=== PATIENT | female | born 1985 | race American Indian/Alaskan Native ===

== ENCOUNTER 2020-08-08 08:01 | Day surgery (SDC) | payer OTHER ==
--- NOTE | 2020-08-07 13:38 | History and Physical Report ---
History of Present Illness Date of examination: 08/07/20 Date of admission: 08/07/2020 Chief complaint: missed History of present illness: Visit Type: Pre-Op CC: pre op. History of Present Illness: pt presents for pre op visit: D&C....................... ..............................................Karen Ha August 07, 2020 10:19 AM Mask, Patient denies fever, cough, shortness of breath and exposure to COVID-19. Pt presents for pre op for D&C due to missed abotion not responsive to medical threapy. States LMP was 07/23/20 that lasted 5 days like her regular periods. Today she has no c/o vaginal bleeding, abdominal pain/cramping. States that she had an SAB in June and she is not sure if this is the same or a different . Ultrasound 07/30/20 showed a possible GS with RPOC in lower uterine segment. Discussed findings with patient and options. Pt states that she had medication X3 in June and it did not work and she would like to have D&C. All risk/benefits/alternatives were d/w pt and questions were addressed and answered. Consents signed and placed on chart and copy given to pt. 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 Hospitalizations: negative Anesthesia Complications: negative Abnormal PAP: negative Uterine Anomaly: negative RICHARD Exposure: negative Infertility: negative Infection History HIV Risk Eval: no TB exposure: no Personal hx. of genital herpes: no Partner hx. of genital herpes: no Hx of STD: Positive 2009 Active Medications (reviewed today): None Current Allergies (reviewed today): * TOMATOES (Critical) Past Medical History: Reviewed history from 11/15/2019 and no changes required: Headaches(Migraines) PCOS Past Surgical History: Reviewed history from 06/12/2020 and no changes required: positive X 2. 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 Risk Factors: PAP Smear History: Date of Last PAP Smear: 06/14/2020 Review of Systems See HPI Laboratory Results Physical Exam Appearance: well developed, well nourished, no acute distress Other Exams Lungs: no rales, rhonchi, or wheezes Heart: S1, S2, no murmur, rub, or gallop Abdomen: soft, non-tender, no masses, bowel sounds normal Extremities: normal alignment, no joint enlargement, crepitus, masses or tenderness; normal tone and strength Genitourinary Exam Comments: deferred for EUA [Problems-CCC] Impression & Recommendations: Problem # 1: Irregular Menses (IHB20-P31.6) Problem # 2: , missed (ICD-632) (RIW02-O04.1) -failed medical thereapy -desires surgical therapy. All risk/benefits/alternatives were d/w pt and questions were addressed and answered. Consent signed and placed on the chart. 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 Negative: distention, tenderness, guarding Genitourinary (Female): Positive: other (deferred until EUA) Results All other labs normal. Assessment and Plan - Patient Problems (1) Missed Status: Acute Plan to address problem: -admit and prepare for above stated procedure -consent signed and placed on the chart.
[~2020-08-08 08:01] MED LIST: LIDOCAINE PF 100 MG/5 ML (CARDIAC SYRINGE) IV ONE; METHYLERGONOVINE MALEATE 0.2 MG/ML VIAL IM ONE; SILVER NITRATE APPLICATOR 1 EA TP ONE; ceFAZolin/Water 2 GM/20 ML 2 GM/20 ML SYRINGE IV NR; fentaNYL 100 MCG/2 ML INJ ONE; propofoL 200 MG/20 ML VIAL IV ONE
--- NOTE | 2020-08-08 08:28 | Anesthesia Day of Surgery ---
Anesthesia Day of Surgery - Day of Surgery Patient Examined: Yes Patient H&P Reviewed: Yes Patient is NPO: Yes
[2020-08-08] MEDS ORDERED: HYDROmorphone 1 MG/1 ML INJ IV PRN ×2 (08:29)
[2020-08-08] MEDS ORDERED: ONDANSETRON 4 MG/2 ML INJ IV PRN (08:29)
--- NOTE | 2020-08-08 08:29 | Anesthesia Consultation ---
Anesthesia Consult and Med Hx Date of service: 08/08/20 - Airway Anesthetic Teeth Evaluation: Good ROM Head & Neck: Adequate Mental/Hyoid Distance: Adequate Mallampati Class: Class III Intubation Access Assessment: Probably Good - Pre-Operative Health Status ASA Pre-Surgery Classification: ASA2 Proposed Anesthetic Plan: General - Pulmonary Hx Smoking: Yes - Central Nervous System Hx Neuromuscular Disorder: Yes (Migraines) Hx Psychiatric Problems: No - Hematic Hx Anemia: Yes ("Borderline" as a child) Hx Sickle Cell Disease: No - Other Systems Hx Alcohol Use: Yes Hx Substance Use: Yes (Marijuana daily) Hx Cancer: No
[2020-08-08] MEDS ORDERED: LACTATED RINGERS 1,000 ML IV SCH (08:30)
[2020-08-08] MEDS ORDERED: MIDAZOLAM 2 MG/2 ML INJ ONE (08:41)
[2020-08-08 08:55] LABS: Hematocrit 36.8 % (30.3-42.9); Hemoglobin 12.1 gm/dl (10.1-14.3); Mean Corpuscular HGB Conc 33 % (30-34); Mean Corpuscular Volume 88 fl (79-97); Platelet Count 170 K/mm3 (140-440); Red Blood Count 4.17 M/mm3 (3.65-5.03); Red Cell Distribution Width 13.6 % (13.2-15.2)
[2020-08-08] MEDS ORDERED: MIDAZOLAM 2 MG/2 ML INJ IV NR (09:00)
[2020-08-08] MEDS ORDERED: dexAMETHasone 20 MG/5 ML VIAL ONE (09:06)
[2020-08-08] MEDS ORDERED: ONDANSETRON 4 MG/2 ML INJ ONE (09:07)
--- NOTE | 2020-08-08 09:14 | Operative Report ---
Operative Report Operative Report: Date of procedure:08/08/2020 Pre-operative diagnosis: missed Post-operative diagnosis:same Procedure name(s): EUA Suction D&C Surgeon: Dr. 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 She desired surgical intervention. All risk, benefits and alternatives were d/w pt and all questions were addressed and answered. Procedure: Patient was taken to the operating room where she was placed under [mask anesthesia]. She was then prepped and draped in sterile fashion. She was placed in dorsal lithotomy position with legs in Geen stirrups. Urine output was obtained via straight catheterization. The anterior lip of the cervix was grasped with a tenaculum and the uterus was sounded to approximately 10cm. As at this point that the cervix was dilated to allow the passage of a [8 ]mm suction curette. Suction dilatation and curettage occurred until a gritty texture was obtained on all surfaces of the uterus. Products of conception were removed from the uterus. Patient was given methergine at the end of the procedure. Hemostasis was noted to be excellent. Silver nitrate was applied to ant cervix where tenaculum had been placed with excellent hemostasis noted. Patient was taken to the recovery room awake and in stable condition. Patient was given Ancef prior to the onset of the procedure. All laps and needle counts were correct. Patient tolerated the procedure well.
--- NOTE | 2020-08-08 09:15 | Short Stay Summary ---
Short Stay Documentation Date of service: 08/08/20 - History Principal diagnosis: missed H&P: dictated Social history: other (see hpi) - Allergies and Medications Current Medications: Allergies tomato Allergy (Verified 08/03/20 17:06) Anaphylaxis Home Medications Medication Instructions Recorded Confirmed Last Taken Type No Known Home Medications [No 08/03/20 08/03/20 Unknown History Reported Home Medications] Active Medications Hydromorphone HCl (Hydromorphone 1 Mg/1 Ml Inj) 0.25 mg IV Q10MIN PRN PRN Reason: Pain, Moderate (4-6) Stop: 08/08/20 23:00 Hydromorphone HCl (Hydromorphone 1 Mg/1 Ml Inj) 0.5 mg IV Q10MIN PRN PRN Reason: Pain , Severe (7-10) Stop: 08/08/20 23:00 Cefazolin Sodium (Ancef/Sterile Water 2 Gm/20 Ml) 2 gm in 20 mls @ 80 mls/hr IV PREOP NR Stop: 08/08/20 20:00 Lactated Ringer's (Lactated Ringers) 1,000 mls @ 125 mls/hr IV DIRECT DANNY Midazolam HCl (Midazolam 2 Mg/2 Ml Inj) 2 mg IV PREOP NR Stop: 08/08/20 23:59 Ondansetron HCl (Ondansetron 4 Mg/2 Ml Inj) 4 mg IV ONCE PRN PRN Reason: Nausea And Vomiting Stop: 08/08/20 23:00 - Brief post op/procedure progress note Date of procedure: 08/08/20 Pre-op diagnosis: missed Post-op diagnosis: same Procedure: Suction D&C EUA Anesthesia: other (LMA) Findings: see op report Surgeon: IZA SUÁREZ Estimated blood loss: minimal Pathology: list (uterine contents) Specimen disposition: to lab Condition: stable - Hospital course Hospital course: pt admitted for above stated procedure. Pt will have recovery in PACU and be d/c home once d/c criteria has been met. - Disposition Condition at discharge: Good Disposition: DC-01 TO HOME OR SELFCARE - Discharge Diagnoses (1) Missed Status: Acute Short Stay Discharge Plan Activity: no restrictions Weight Bearing Status: Weight Bear as Tolerated Diet: regular Additional Instructions: DO NOT TAKE BATHS FOR 2 WEEK, MAY SHOWER VAGINAL REST UNTIL DOCTOR ORDERS(NOTHING IN VAGINA-NO TAMPONS, NO DOUCHE, NO SEX ) DO NOT DRIVE, OPERATE MACHINERY, OR SIGN LEGAL PAPERS FOR 24 HOURS. MAY RESUME REGULAR DIET (AVOID GREASY AND SPICY FOODS TODAY) Follow up with: [facility] [Primary Care Provider] - 7 Days Forms: Outpatient Surgery DC Inst. Prescriptions: Ibuprofen [Motrin 800 MG tab] 800 mg PO Q8HR PRN #30 tablet PRN Reason: Pain, Moderate (4-6)
[2020-08-08] MEDS ORDERED: diphenhydrAMINE 50 MG/ML VIAL ONE (10:12)
[2020-08-08] MEDS ORDERED: diphenhydrAMINE 50 MG/ML VIAL IV NR (10:13)
[2020-08-08 10:49] VITALS: BP 136/77
--- NOTE | 2020-08-08 16:33 | Post Anesthesia Evaluation ---
- Post Anesthesia Evaluation Patient Participated: Yes Airway Patent: Yes Stable Respiratory Function: Yes Nausea/Vomiting: No Temp > 96.8F: Yes Pain Manageable: Yes Adequeate Hydration: Yes Anesthesia Complications: No Block Receding Appropriately: Not Applicable Patient on Ventilator: No
== END 2020-08-08 10:45 | disposition home or self-care (01) ==
LOC: OR 08:01
PROVIDERS: ATTEND Obstetrics & Gynecology
DX: O02.1 Missed abortion (principal); F17.210 Nicotine dependence, cigarettes, uncomplicated; G43.909 Migraine, unspecified, not intractable, without status migrainosus; K21.9 Gastro-esophageal reflux disease without esophagitis; Z3A.10 10 weeks gestation of pregnancy; Z88.8 Allergy status to other drugs, medicaments and biological substances; Z79.899 Other long term (current) drug therapy; Z98.891 History of uterine scar from previous surgery; Z72.89 Other problems related to lifestyle; Z98.890 Other specified postprocedural states; Z86.2 Personal history of diseases of the blood and blood-forming organs and certain disorders involving the immune mechanism
CPT/HCPCS: 36415; 59820; 85027; 86850; 86900; 86901; 88305; J1100; J1200; J2001; J2210; J2250; J2405; J2704; J3010; J7120

== ENCOUNTER 2021-11-20 05:26 | Inpatient (IN) | payer OTHER ==
--- NOTE | 2021-11-13 12:28 | History and Physical Report ---
History of Present Illness Date of examination: 11/13/21 History of present illness: OB Visit Record - 38 weeks ( P: 2) EDC: 11/27/2021 Weight today: 173 lbs. - Change since last visit: -2 Pre-preg wt: 138 lbs. - Change for : +35 BP: 102/60 Temp: 98.2 Urine Tests Protein: negative Glucose: negative Nitrite: negative Leukocytes: negative Chief Complaint / Current Status: No c/o 38w 0d pre op ....................................................................Julianne Webster November 13, 2021 10:33 AM Patient denies fever, cough, shortness of breath and exposure to COVID-19. Pt presents for preop for c/s with Dr. Carvalho. All risk/benefits/alternatives were d/w pt and questions were addressed and answered. She desires removal of tubes at time of c/s for contraception. I d/w risk including but not limted to bleeding, infection, injury to bladder, bowel, uterus, tubes ovaries, need for transfusion, need for addtional hospital stay, injury to the baby and hysterectomy as a life saving measure. She expressed understanding. Consents singed and placed on the chart. EDC Calculations LMP: 11/27/2021 EDC Confirmation: 11/27/2021 Gestational Age: 38 0/7 weeks Past History : 5 Term Births: 2 Premature Births: 0 Living Children: 2 Para: 2 Mult. Births: 0 Prev : 2 Prev. attempt? 0 Aborta: 2 Elect. Ab: 0 Spont. Ab: 2 Ectopics: 0 # 1 Delivery date: 04/2010 Weeks Gestation: 6-7 wks Delivery type: SAB Comments: No complications # 2 Delivery date: 02/2011 Weeks Gestation: 39 wks labor: no Delivery type: Hours of labor: 12 hours Anesthesia type: spinal Delivery location: [place], [place] Sex: Female weight: 7-0 Comments: Elected , prolonged labor? # 3 Delivery date: 10/05/2017 Weeks Gestation: 39 wks labor: no Delivery type: Anesthesia type: spinal Delivery location: [facility] Sex: Female weight: 6-15 Comments: No complications # 4 Delivery date: 10/2020 Weeks Gestation: 6-7 Delivery type: SAB Comments: D&C Past Medical History: Reviewed history from 11/15/2019 and no changes required: Headaches(Migraines) PCOS Past Surgical History: Reviewed and updated today: positive X 2. 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 of genital herpes: no Rash, Viral, or Febrile illness since last LMP? no Varicella/Chicken Pox Status: Unknown TB Risk: no Genetic History ADVANCED MATERNAL AGE Congenital Heart Defect: Mom: no Dad: no Nathanael Disease: Mom: no Dad: no Thalassemia Mom: no Dad: no Neural Tube Defect Mom: no Dad: no Down's Syndrome Mom: no Dad: no Agusto-Sachs Mom: no Dad: no Sickle Cell Disease/Trait Mom: no Dad: no Hemophilia Mom: no Dad: no Muscular Dystrophy Mom: no Dad: no Cystic Fibrosis Mom: no Dad: no Divide Chorea Mom: no Dad: no Mental Retardation Mom: no Dad: no Fragile X Mom: no Dad: no Other Genetic/Chromosomal Disorder Mom: no Dad: no Child w/other defect Mom: no Dad: no Enviromental Exposures Enviromental Exposures Reviewed Xray Exposure: no Medication, drug, or alcohol use since LMP: no Chemical/Other Exposure: no Exposure to Cat Liter: no Hx of Parvovirus (Fifth Disease): no Occupational Exposure to Children: 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 Medications (reviewed today): None Current Allergies (reviewed today): * TOMATOES (Critical) Past History Past Medical History: other (see hpi) Past Surgical History: other (see hpi) 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) Family/Genetic History: other (see hpi) Social history: other (see hpi) - Obstetrical History Expected Date of Delivery: 11/27/21 Actual Gestation: 38 Week(s) 0 Day(s) : 4 Para: 2 Hx # Term Pregnancies: 2 Spontaneous Abortions: 1 Number of Living Children: 2 Medications and Allergies Allergies Allergy/AdvReac Type Severity Reaction Status Date / Time tomato Allergy Anaphylaxis Verified 08/03/20 17:06 Home Medications Medication Instructions Recorded Confirmed Last Taken Type Ibuprofen [Motrin 800 MG tab] 800 mg PO Q8HR PRN #30 tablet 08/08/20 Unknown Rx Review of Systems All systems: negative - Physical Exam Cardiovascular: Normal S1, Normal S2 Lungs: Positive: Clear to auscultation, Normal air movement Abdomen: Positive: normal appearance, soft, normal bowel sounds. Negative: distention, tenderness, guarding Genitourinary (Female): Positive: other (deferred) - Obstetrical FHR: auscultation normal Results All other labs normal. Assessment and Plan - Patient Problems (1) Previous delivery affecting Status: Acute Plan to address problem: -admit and prepare for c/s with B/L salpingectomy and any other indicated procedures -consents signed and placed on the chart. (2) Sterilization Status: Acute Plan to address problem: -all risk, benefits and alternatives were d/w pt and questions were addressed and answered -consent signed and placed on the chart.
[2021-11-14 11:03] LABS: Hematocrit 36.9 % (30.3-42.9); Hemoglobin 12.1 gm/dl (10.1-14.3); Mean Corpuscular HGB Conc 33 % (30-34); Mean Corpuscular Volume 88 fl (79-97); Platelet Count 129 K/mm3 (140-440); Red Cell Distribution Width 14.2 % (13.2-15.2)
[~2021-11-20 05:26] MED LIST changes: +BICITRA ORAL LIQD 30ML PO NR; +FAMOTIDINE 20 MG/2 ML INJ IV NR; +LACTATED RINGERS 1,000 ML IV SCH; -LIDOCAINE PF 100 MG/5 ML (CARDIAC SYRINGE) IV ONE; -METHYLERGONOVINE MALEATE 0.2 MG/ML VIAL IM ONE; +METOCLOPRAMIDE 10 MG/2 ML INJ IV NR; +OXYTOCIN DRIP 30 UNITS/500 ML BAG IV SCH; -SILVER NITRATE APPLICATOR 1 EA TP ONE; -fentaNYL 100 MCG/2 ML INJ ONE; -propofoL 200 MG/20 ML VIAL IV ONE
[2021-11-20] MEDS ORDERED: FAMOTIDINE 20 MG/2 ML INJ IV ONE (07:00)
[2021-11-20] MEDS: LACTATED RINGERS 1,000 ML IV SCH ×2 (07:00→11:13)
[2021-11-20] MEDS ORDERED: METOCLOPRAMIDE 10 MG/2 ML INJ IV ONE (07:00)
[2021-11-20] MEDS ORDERED: BICITRA ORAL LIQD 30ML PO ONE (07:00)
[2021-11-20] MEDS ORDERED: ceFAZolin/Water 2 GM/20 ML 2 GM/20 ML SYRINGE IV NR (07:00)
[2021-11-20] MEDS ORDERED: ONDANSETRON 4 MG/2 ML INJ ONE (07:05)
[2021-11-20] MEDS ORDERED: PHENYLEPHRINE/NS 1,000 MCG/10 ML SYRINGE (OR USE) IV ONE (07:06)
[2021-11-20] MEDS ORDERED: ePHEDrine SULFATE 50 MG/1 ML INJ ONE (07:06)
[2021-11-20] MEDS ORDERED: BUPIVACAINE/PF (0.5%) 5 MG/1 ML 30 ML VIAL INFILTRATI ONE (07:06)
[2021-11-20] MEDS ORDERED: LACTATED RINGERS 1,000 ML ONE (07:35)
[2021-11-20] MEDS ORDERED: SODIUM CHLORIDE 0.9% IRR 1,500 ML BOTTLE IR ONE (07:55)
[2021-11-20] MEDS ORDERED: WATER FOR IRRIG STERILE 1,500 ML BOTTLE IR ONE (07:55)
[2021-11-20] MEDS ORDERED: OXYTOCIN DRIP 30 UNITS/500 ML BAG IV SCH ×2 (08:00→13:00)
[2021-11-20] MEDS ORDERED: NALOXONE 0.4 MG/1 ML INJ IV PRN ×2 (08:49→13:00)
[2021-11-20] MEDS ORDERED: MORPHINE 4 MG/1 ML INJ IV PRN (08:49)
[2021-11-20] MEDS ORDERED: HYDROmorphone 1 MG/1 ML INJ IV PRN ×2 (08:49→10:00)
--- NOTE | 2021-11-20 08:50 | Anesthesia Consultation ---
Anesthesia Consult and Med Hx Date of service: 11/20/21 - Airway Anesthetic Teeth Evaluation: Good ROM Head & Neck: Adequate Mental/Hyoid Distance: Adequate Mallampati Class: Class II Intubation Access Assessment: Probably Good - Pulmonary Exam CTA: Yes - Cardiac Exam Cardiac Exam: RRR - Pre-Operative Health Status ASA Pre-Surgery Classification: ASA2 Proposed Anesthetic Plan: Spinal Nerve Block: Kiran Tap - Pulmonary Hx Smoking: Yes (FORMER CIGAR SMOKER. STOPPED 2-3 YRS AGO.) Hx Asthma: No Hx Respiratory Symptoms: No SOB: No COPD: No Home Oxygen Therapy: No Hx Pneumonia: No Hx Sleep Apnea: No - Cardiovascular System Hx Hypertension: No Hx Coronary Artery Disease: No Hx Heart Attack/AMI: No Hx Angina: No Hx Percutaneous Transluminal Coronary Angioplasty (PTCA): No Hx Cardia Arrhythmia: No Hx Pacemaker: No Hx Internal Defibrillator: No Hx Valvular Heart Disease: No Hx Heart Murmur: No Hx Peripheral Vascular Disease: No - Central Nervous System Hx Neuromuscular Disorder: Yes (Migraines) Hx Seizures: No CVA: No Hx Back Pain: No Hx Psychiatric Problems: Yes - Gastrointestinal Hx Ulcer: No Hx Gastroesophageal Reflux Disease: No - Endocrine Hx Renal Disease: No Hx End Stage Renal Disease: No Hx Cirrhosis: No Hx Liver Disease: No Hx Insulin Dependent Diabetes: No Hx Non-Insulin Dependent Diabetes: No Hx Thyroid Disease: No Hx Hypothyroidism: No Hx Hyperthyroidism: No - Hematic Hx Anemia: No Hx Sickle Cell Disease: No - Other Systems Hx Alcohol Use: Yes (OCCASIONALLY) Hx Substance Use: Yes (MARIJUANA. STOPPED 02/26.) Hx Cancer: No Hx Obesity: No
--- NOTE | 2021-11-20 08:51 | Anesthesia Day of Surgery ---
Anesthesia Day of Surgery - Day of Surgery Patient Examined: Yes Patient H&P Reviewed: Yes Patient is NPO: Yes Beta Blockers: No Cardiac Clearance: No Pulmonary Clearance: No Gene's Test: N/A
--- NOTE | 2021-11-20 08:59 | Operative Report ---
Operative Report Operative Report: Date of procedure: November 20, 2021 Pre-operative diagnosis: Intrauterine at 39 weeks with 2 previous section desires permanent sterilization Post-operative diagnosis: Same Procedure name(s): Repeat low transverse section with bilateral salpingectomy Surgeon: Romel Carvalho MD Manager Private: LALO Anesthesia: Spinal EBL: Complications: None Findings: Patient with erythema and fascia to scarring had scarring of the anterior uterine wall to the rectus muscles. Abnormal appearing (spoken to normal appearing uterus. Male infant weight 7 pounds 1 ounces Apgars 8 at 1 minute and 9 at 5 minutes Specimen(s): Right and left fallopian tubes Procedure: The patient was brought to the operating room. A spinal was placed without any complications. She was then placed in left lateral tilt. Prepped and draped in the usual sterile manner. Timeout was performed. After testing for adequate anesthesia level, a Pfannenstiel incision was made through her previous scar. This incision was taken down to the fascia. The fascia was very thin and underlying rectus muscles were clearly seen. This incision was extended out laterally with Tello scissors. The rectus muscles were bluntly and sharply . The peritoneum was then entered with the trading floor operator's fingers. This incision was spread vertically with care not to damage the bladder below with lysis of adhesions. The Jevon self-retaining tractor was then placed without any difficulty. The bladder flap was then formed sharply and bluntly with Metzenbaum scissors. A transverse incision was made in lower uterine segment. This incision was extended laterally with the operators fingers. The amniotic sac was then entered bluntly with the trading floor operator's fingers. The was delivered from the vertex position. Bulb suction on the mother's abdomen. Cord was double clamped and cut. The was then passed to the nursery personnel who were in attendance. The above scores were given by the nursery personnel. The placenta was then bluntly removed. The uterus was then external ized and wiped clean the remaining products. The uterine incision was closed in layers. The first incision was closed in a locking manner using 0 Vicryl. This was followed by imbricating stitch also with 0 Vicryl. Attention was then switched to the patient's fallopian tubes. Each fallopian tube was identified by its fimbriated end. Starting on the patient's right side. A portion of each tube was grabbed with the Favian clamp approximately 2-3 cm from the cornua. A second Favian grasp the distal in the fallopian tube the tube was raised the medially and was transferred dissected with the Bovie. The mesosalpinx was cauterized and cut immediately under the fallopian tube until the distal end was reached and the tube was detached. The remaining mesosalpinx and ovary were inspected and found to be hemostatic. Attention was then switched to the patient's left fallopian tube where the same procedure was performed with good hemostasis. Attention was then switched back to the uterine closure. This closure was hemostatic. The bladder flap was copiously irrigated and found to be hemostatic. The pelvis was copiously irrigated and found to be hemostatic. The uterus was then placed back to the patient's abdomen. The retractors were removed. The rectus muscles were inspected and found to be hemostatic. The fascia was then closed in a running manner using 0 Vicryl. This incision was hemostatic irrigation Bovie. The skin was reapproximated with 4-0 Vicryl subcuticularly. Dermabond was placed along the skin closure. The patient tolerated procedure well. Her urine was clear. The was admitted to the well baby nursery. The patient was accompanied to recovery room in good condition. Instrument count correct x3.
--- NOTE | 2021-11-20 09:22 | Progress Note ---
Spinal Anesthesia Block - Spinal Anesthesia Block Start Time: 07:40 Stop Time: 07:45 Performed by:: LEIGHA GAY Procedure: The patient was placed in a sitting position on the OR table and monitors applied. A timeout was performed immediately prior to the start of the procedure. The patient was Prepped and draped in a sterile fashion and the skin was localized with 3 mL 1% lidocaine at L[4]-L[5] interspace. An introducer was placed into the back between L4-L5 and a 25g spinal needle was advanced into the intrathecal space until clear, free flowing CSF was observed. 1.8cc of 0.75% hyperbaric bupivacaine + 5mcg Precedex was injected into the intrathecal space and the spinal needle was removed. The patient tolerated the procedure well and there were no immediate complications noted.
--- NOTE | 2021-11-20 09:23 | Progress Note ---
Regional Anesthesia Block - Regional Anesthesia Block Start Time: : Stop Time: :12 Performed By:: LEIGHA GAY Procedure: During the pre-op interview the patient agreed to and signed a consent for a TAP block for post surgical pain management. After her C/S was completed a time out was performed prior to the start of the procedure. The Trans Abdominal Plane was identified bilaterally via ultrasound. The skin was prepped bilaterally with chlorhexidine and a 22g stimuplex needle was advanced to the area between the internal oblique muscle and the trans abdominal plane. Marcaine 0.25% 30mlwas injected under ultrasound guidance on the left and right side. Negative aspiration every 5mL, There was no change in the patients heart rate or rhythm and the patient tolerated the procedure well. No apparent complications were observed.
[2021-11-20] MEDS ORDERED: PROMETHAZINE 25 MG TAB PO PRN (09:30)
[2021-11-20] MEDS ORDERED: ONDANSETRON 4 MG/2 ML INJ IV PRN ×2 (09:30→13:00)
[2021-11-20] MEDS ORDERED: diphenhydrAMINE 50 MG/ML VIAL IV PRN (09:30)
[2021-11-20] MEDS ORDERED: PROMETHAZINE 25 MG RECT SUPP PR PRN (09:30)
[2021-11-20] MEDS ORDERED: WITCH HAZEL/ GLYCERIN PAD TP PRN (13:00)
[2021-11-20] MEDS ORDERED: D5W/LACTATED RINGERS 1,000 ML IV SCH (13:00)
[2021-11-20] MEDS ORDERED: LANOLIN/ZINC/DIMETHICONE (LANSINOH) 7 GM TP PRN (13:00)
[2021-11-20] MEDS ORDERED: ceFAZolin/NS 1 GM/50 ML 1 GM/50 ML BAG IV SCH (13:00)
[2021-11-20] MEDS: oxyCODONE /ACETAMINOPHEN 5-325MG TAB PO PRN ×2 (15:03→21:59)
--- NOTE | 2021-11-20 16:05 | Post Anesthesia Evaluation ---
- Post Anesthesia Evaluation Patient Participated: Yes Airway Patent: Yes Stable Respiratory Function: Yes Nausea/Vomiting: No Temp > 96.8F: Yes Pain Manageable: Yes Adequeate Hydration: Yes Anesthesia Complications: No Block Receding Appropriately: Yes Patient on Ventilator: No
[2021-11-20] MEDS: ceFAZolin/NS 1 GM/50 ML 1 GM/50 ML BAG IV SCH (16:30)
[2021-11-20] MEDS: SIMETHICONE 80 MG CHEW TAB PO PRN (18:13)
[2021-11-20] MEDS: ACETAMINOPHEN 325 MG TAB PO PRN (20:10)
[2021-11-20 20:43] LABS: Hematocrit 35.2 % (30.3-42.9); Hemoglobin 11.7 gm/dl (10.1-14.3)
[2021-11-20] MEDS ORDERED: SENNOSIDES 8.6 MG TAB PO PRN (22:00)
[2021-11-20] MEDS ORDERED: HYDROCORTISONE 25 MG RECTAL SUPP PR PRN (22:00)
[2021-11-20] MEDS ORDERED: MAGNESIUM HYDROXIDE (MOM) ORAL LIQD UDC PO PRN (22:00)
[2021-11-21] MEDS: ceFAZolin/NS 1 GM/50 ML 1 GM/50 ML BAG IV SCH (00:30)
[2021-11-21] MEDS: ACETAMINOPHEN 325 MG TAB PO PRN ×3 (02:10→18:19)
[2021-11-21] MEDS ORDERED: KETOROLAC 30 MG/1 ML INJ IV SCH (06:00)
[2021-11-21] MEDS: oxyCODONE /ACETAMINOPHEN 5-325MG TAB PO PRN ×3 (06:06→21:37)
--- NOTE | 2021-11-21 08:56 | Progress Note ---
Assessment and Plan A: 36 y.o. s/p rpt . POD #1. - Patient Problems (1) delivery delivered Current Visit: Yes Status: Acute Plan to address problem: Continue with care. Encourage ambulation. Encourage IS use. Advance diet as tolerated. Anticipate discharge home on 11/22/2021. n Subjective - Subjective Date of service: 11/21/21 Principal diagnosis: s/p rpt , POD #1 Patient reports: appetite normal, voiding normally, pain well controlled, ambulating normally [place]: doing well Objective - Vital Signs Latest vital signs: Vital Signs Temp Pulse Resp BP BP Pulse Ox Pulse Ox 11/21/21 08:08 99 11/21/21 07:57 98.5 F 67 18 127/81 100 11/21/21 07:06 18 11/21/21 06:06 20 11/21/21 05:46 97.6 F 70 20 133/81 100 11/21/21 03:10 18 11/21/21 01:14 98.8 F 71 18 137/76 100 11/20/21 22:59 18 11/20/21 21:59 20 11/20/21 21:20 98.8 F 68 20 148/79 100 11/20/21 21:10 18 11/20/21 20:10 20 100 11/20/21 16:05 98.2 F 18 141/84 11/20/21 10:50 98.4 F 79 18 134/83 98 11/20/21 10:18 98.1 F 83 14 118/71 98 11/20/21 09:45 77 15 105/57 100 11/20/21 09:30 86 16 136/75 100 11/20/21 09:15 100 H 14 127/77 100 11/20/21 09:10 92 H 16 86/66 98 11/20/21 09:05 97.8 F 77 15 105/57 100 Pulse Ox 11/21/21 08:08 98 11/21/21 07:57 11/21/21 07:06 11/21/21 06:06 11/21/21 05:46 11/21/21 03:10 11/21/21 01:14 11/20/21 22:59 11/20/21 21:59 11/20/21 21:20 11/20/21 21:10 11/20/21 20:10 11/20/21 16:05 11/20/21 10:50 11/20/21 10:18 11/20/21 09:45 11/20/21 09:30 11/20/21 09:15 11/20/21 09:10 11/20/21 09:05 Intake and Output 11/20/21 11/21/21 11/21/21 22:59 06:59 14:59 Intake Total 1370 480 240 Output Total 3400 1300 Balance -2030 -820 240 Intake: IV 50 ANCEF/NS 1 GM/50 ML 1 gm 50 In 50 ml @ 100 mls/hr IV Q8H [facility] Rx#:[id number] Oral 480 Intake, Free Water 840 480 240 Output: Urine 3400 1300 Indwelling Catheter 3000 Void 400 1300 Other: Total, Intake Amount 480 Total, Output Amount 400 500 # Voids Void 1 - Exam Breasts: Present: deferred Cardiovascular: Present: Regular rate Lungs: Present: Normal air movement Abdomen: Present: normal appearance, soft Vulva: both: normal Uterus: Present: normal, firm, other (Light lochia rubra noted. ) Extremities: Present: normal Incision: Present: normal, dry, intact, other (No s/sx of infection, no drainage noted. )
[2021-11-21] MEDS: FERROUS SULFATE 325 MG TAB PO SCH (10:07)
[2021-11-21] MEDS: PRENATAL VIT27-FE FUMARATE-FOLIC ACID VIT TAB PO SCH (10:07)
[2021-11-21] MEDS: SIMETHICONE 80 MG CHEW TAB PO PRN (18:20)
[2021-11-22] MEDS: ACETAMINOPHEN 325 MG TAB PO PRN ×2 (04:30→19:49)
--- NOTE | 2021-11-22 07:38 | Progress Note ---
Assessment and Plan pt doing well, c/o not passing flatus. VSSAF - b/p 130-140/70-80's, H&H stable. lochia scant, fundus firm, incision D&I. - Patient Problems (1) delivery delivered Current Visit: Yes Status: Acute Plan to address problem: advance activity Anticipate d/c home tomorrow Subjective - Subjective Date of service: 11/22/21 Principal diagnosis: s/p rpt , POD #2 Patient reports: appetite normal, voiding normally, pain well controlled, ambulating normally, no dizzy ambulation, no flatus, no bowel movement, no nauseated : doing well, bottle feeding (breast and bottle feeding) Objective - Vital Signs Latest vital signs: Vital Signs Temp Pulse Resp Resp BP Pulse Ox Pulse Ox 11/22/21 05:30 18 11/22/21 04:30 20 11/22/21 00:25 98.2 F 85 18 130/82 100 11/21/21 22:37 18 11/21/21 21:37 20 11/21/21 19:19 18 11/21/21 17:11 22 11/21/21 15:54 98.7 F 75 18 140/78 98 11/21/21 12:10 99 11/21/21 12:01 99 11/21/21 08:08 99 11/21/21 07:57 98.5 F 67 18 127/81 100 Pulse Ox 11/22/21 05:30 11/22/21 04:30 11/22/21 00:25 11/21/21 22:37 11/21/21 21:37 100 11/21/21 19:19 11/21/21 17:11 11/21/21 15:54 11/21/21 12:10 99 11/21/21 12:01 99 11/21/21 08:08 98 11/21/21 07:57 Intake and Output 11/21/21 11/21/21 11/22/21 15:59 23:59 07:59 Intake Total 720 1080 480 Balance 720 1080 480 Intake: Oral 120 600 Intake, Free Water 600 480 480 Other: Total, Intake Amount 120 240 # Voids Void 3 1 1 - Exam Breasts: Present: normal Cardiovascular: Present: Regular rate Lungs: Present: Normal air movement Abdomen: Present: normal appearance, soft. Absent: distention, tenderness, guarding Uterus: Present: normal, fundal height below umbilicus Extremities: Present: normal Deep Tendon Reflex Grade: Normal +2 Incision: Present: normal, dry, intact (skin glue present)
[2021-11-22] MEDS: oxyCODONE /ACETAMINOPHEN 5-325MG TAB PO PRN ×2 (08:30→14:44)
[2021-11-22] MEDS: PRENATAL VIT27-FE FUMARATE-FOLIC ACID VIT TAB PO SCH (08:31)
[2021-11-22] MEDS: FERROUS SULFATE 325 MG TAB PO SCH (08:31)
[2021-11-23] MEDS: oxyCODONE /ACETAMINOPHEN 5-325MG TAB PO PRN ×2 (02:41→11:09)
[2021-11-23] MEDS: PRENATAL VIT27-FE FUMARATE-FOLIC ACID VIT TAB PO SCH (11:09)
[2021-11-23] MEDS: FERROUS SULFATE 325 MG TAB PO SCH (11:09)
[2021-11-23] MEDS: IBUPROFEN 600 MG TAB PO PRN ×2 (11:11→17:16)
--- NOTE | 2021-11-23 15:26 | Discharge Summary ---
Providers - Providers Date of Admission: 11/20/21 05:26 Date of discharge: 11/23/21 Attending physician: JELLY ARORA 11/20/21 12:27 Consult to Seo Strategist [CONS] Routine Reason For Exam: Primary care physician: [facility] Hospitalization Condition: Good Procedures: delivery with bilateral salpingectomy for sterilization Hospital course: This is a 36-year-old female G5 now P3 who presented for repeat delivery with sterilization. She underwent delivery with bilateral salpingectomy. Postoperative course was complicated by slow return of bowel function. However now on day 3 she has had return of bowel function. Patient denies bleeding. She denies discharge home. Breasts: Present: normal. Absent: swelling, mass, pain, engorged Cardiovascular: Present: Regular rate Lungs: Present: Normal air movement Abdomen: Present: normal appearance, soft. Absent: distention, tenderness, guarding Uterus: Present: fundal height below umbilicus. Absent: tenderness Extremities: Present: normal. Absent: tenderness Incision: Clean, dry, intact. No signs and symptoms of infection or dehiscence. Disposition: 01 HOME / SELF CARE / HOMELESS Final Discharge Diagnosis (Prints w/discharge instructions): Status post delivery with bilateral salpingectomy - Discharge Diagnoses (1) Advanced maternal age (AMA) in Status: Acute (2) delivery delivered Status: Acute (3) Sterilization Status: Acute Core Measure Documentation - Palliative Care Palliative Care/ Comfort Measures: Not Applicable - Core Measures Any of the following diagnoses?: none Exam - Constitutional Vitals: Temp Pulse Resp BP Pulse Ox 98.7 F 85 18 124/72 98 11/23/21 08:14 11/23/21 08:14 11/23/21 08:14 11/23/21 08:14 11/23/21 08:30 Plan Care Plan Goals: [] Smoking cessation referral if applicable(refer to patient education folder for contact #) [] Refer to [facility] Booklet Call your doctor immediately for: * Fever > 100.5 * Heavy vaginal bleeding ( >1 pad per hour) * Severe persistent headache * Shortness of breath * Reddened, hot, painful area to leg or breast * Drainage or odor from incision. * Keep incision clean and dry at all times and follow doctor's instructions regarding bathing/showering Follow up with: [facility] [Primary Care Provider] - 7 Days Forms: [facility] Discharge Summary Prescriptions: Lidocain2.5%/Prilocai2.5% [Emla] 5 gm TP ONCE #1 tube Ibuprofen [Motrin] 800 mg PO TID PRN #30 tablet PRN Reason: Pain oxyCODONE /ACETAMINOPHEN [Percocet 5/325 mg] 1 tab PO Q6HR PRN #20 tablet PRN Reason: Pain
--- NOTE | 2021-11-23 15:30 | Discharge Summary ---
Providers - Providers Date of Admission: 11/20/21 05:26 Date of discharge: 11/23/21 Attending physician: JELLY ARORA 11/20/21 12:27 Consult to Roll Builder [CONS] Routine Reason For Exam: Primary care physician: [facility] Hospitalization Condition at discharge: Good Disposition: 01 HOME / SELF CARE / HOMELESS - Discharge Diagnoses (1) Advanced maternal age (AMA) in Status: Acute (2) delivery delivered Status: Acute (3) Sterilization Status: Acute Plan - Discharge Medications Prescriptions: Lidocain2.5%/Prilocai2.5% [Emla] 5 gm TP ONCE #1 tube Ibuprofen [Motrin] 800 mg PO TID PRN #30 tablet PRN Reason: Pain oxyCODONE /ACETAMINOPHEN [Percocet 5/325 mg] 1 tab PO Q6HR PRN #20 tablet PRN Reason: Pain - Provider Discharge Summary Activity: no sex for 6 weeks, no heavy lifting 4 weeks, no strenuous exercise Diet: routine Instructions: routine Additional instructions: [] Smoking cessation referral if applicable(refer to patient education folder for contact #) [] Refer to [facility] Booklet Call your doctor immediately for: * Fever > 100.5 * Heavy vaginal bleeding ( >1 pad per hour) * Severe persistent headache * Shortness of breath * Reddened, hot, painful area to leg or breast * Drainage or odor from incision. * Keep incision clean and dry at all times and follow doctor's instructions regarding bathing/showering - Follow up plan Follow up: PERLA TIDWELL [Primary Care Provider] - 7 Days Forms: [facility] Discharge Summary
[2021-11-23 15:44] VITALS: BP 111/63
== END 2021-11-23 17:45 | disposition home or self-care (01) | DRG 784 ==
LOC: APU 05:26 → OB 10:34
PROVIDERS: ADMIT Obstetrics & Gynecology; ATTEND Obstetrics & Gynecology
PROC: 10D00Z1 Extraction of Products of Conception, Low, Open Approach (ICD-10-PCS; principal; 2021-11-20)
PROC: 0UB70ZZ Excision of Bilateral Fallopian Tubes, Open Approach (ICD-10-PCS; 2021-11-20)
PROC: 3E0T3BZ Introduction of Anesthetic Agent into Peripheral Nerves and Plexi, Percutaneous Approach (ICD-10-PCS; 2021-11-20)
DX: O34.211 Maternal care for low transverse scar from previous cesarean delivery (principal); O99.354 Diseases of the nervous system complicating childbirth; Z37.0 Single live birth; Z3A.39 39 weeks gestation of pregnancy; Z20.822 Contact with and (suspected) exposure to COVID-19; G43.909 Migraine, unspecified, not intractable, without status migrainosus; Z91.018 Allergy to other foods; Z30.2 Encounter for sterilization
CPT/HCPCS: 36415; 85014; 85018; 85027; 86592; 86850; 86900; 86901; 88302; G0378; J3490; C1765; J0690; J2370; J2405; J2590; J2765; J7120; U0003